=== PATIENT | male | born 1950 | race American Indian/Alaskan Native ===

== ENCOUNTER → 2021-01-24 09:39 | Outpatient (CLI) | payer MEDICARE, OTHER, SELFPAY ==
--- NOTE | 2021-01-24 | DI.CT.S_ITS ---
PROCEDURE: CT ABDOMEN PELVIS WO/W CON INDICATIONS: Hematuria, unspecified TECHNIQUE: Optional 5 mm thick noncontrast images acquired from the diaphragm to the symphysis pubis. After the administration of intravenous contrast, 5 mm thick images acquired from the diaphragm to the symphysis pubis after a 10-minute delay. 2 mm thick coronal and sagittal reformats were then performed of the kidneys and ureters. For radiation dose reduction, the following was used: automated exposure control, adjustment of mA and/or kV according to patient size. COMPARISON: [facility], CT, CT ABD PELVIS W CON, 10/01/2015, 19:26. FINDINGS: Image quality: Excellent. Lung bases: Lung bases are clear. Heart size is normal. Coronary artery stents are noted. Solid organs: Liver: The liver has no mass or intrahepatic biliary ductal dilatation. The portal vein and hepatic veins are patent. Multiple subcentimeter hepatic hypodensities too small to further characterize but are stable compared to prior CT in 2016 and therefore are likely cysts. Biliary: The gallbladder is not visualized. Pancreas: The pancreas has no mass or ductal dilatation. There is no surrounding inflammation. Spleen: Normal size. There are no masses. A subcentimeter hypodensity is unchanged, likely a cyst. Adrenals: No hypertrophy or nodules. Kidneys/ureters/bladder: No obstructive calculus or hydronephrosis. No solid mass. No cystic mass. The right ureter has a filling defect in the distal 3rd. There is a filling defect in the bladder with irregular finger-like border extending from the lateral wall of the bladder. There is irregular bladder thickening anteriorly. Peritoneum and bowel: The distal esophagus and stomach are normal. The small bowel has a normal caliber and appearance. The terminal ileum is normal. The large bowel has increased stool and diverticulosis. There is no evidence of diverticulitis. The appendix is normal. No free fluid or air. Nodes and vessels: No retroperitoneal or mesenteric adenopathy by size criteria. The aorta has atherosclerosis with no aneurysmal dilatation. Miscellaneous: No abdominal wall mass or hernia. PELVIS: Genitourinary: See above bladder findings. The prostate has a normal size. Miscellaneous: No inguinal hernias or adenopathy. Bones: Degenerative changes with no focal abnormality. The patient is status post L5-S1 discectomy and interbody fusion. No vertebral body compression fractures. IMPRESSION: 1. 3.4 x 3.7 centimeter irregular bladder mass extending from the left lateral wall. 2. No evidence of metastatic disease or adenopathy. 3. Hepatic hypodensities are unchanged compared to 2016 consistent with cysts. Dictated by: James Atkins M.D. on 01/24/2021 at 13:32 Approved by: James Atkins M.D. on 01/24/2021 at 13:44
== END ==
PROVIDERS: Family Provider Family Medicine; PCP Family Medicine; Referring Provider Family Medicine; Visit Provider Family Medicine
DX: R31.9 Hematuria, unspecified (principal); N32.9 Bladder disorder, unspecified
CPT/HCPCS: 74178

== ENCOUNTER → 2021-02-11 07:42 | Outpatient (CLI) | payer MEDICARE, OTHER, SELFPAY ==
[2021-02-11 11:31] LABS: COVID19 -Nasal RAPID Negative (Negative)
== END ==
PROVIDERS: Family Provider Family Medicine; PCP Family Medicine; Visit Provider Urology
DX: Z20.822 Contact with and (suspected) exposure to COVID-19 (principal)
CPT/HCPCS: 87635; C9803

== ENCOUNTER 2021-02-13 06:32 | Day surgery (SDC) | payer MEDICARE, OTHER, SELFPAY ==
[2021-02-05 12:22] VITALS: BMI 31.9
[2021-02-13] VITALS (11 sets, daily range): BP systolic 95–120; BP diastolic 50–69; PULSE 57–69; RESP 12–18; TEMP 36.4–37.1; O2SAT 97–100; BMI 31.9
--- NOTE | 2021-02-13 | PATH_ITS ---
[facility] Accession Number: [id number] . 01 Material submitted: . bladder - BLADDER TUMOR . 01 Clinical history: . SDC . 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 Histologic Grade: Low-grade Tumor extent: Noninvasive papillary carcinoma. Lymphovascular invasion: Not identified. Tumor configuration: Papillary and endophytic growth patterns. Muscularis propria (Detrusor muscle): Not identified. MRV 02/18/2021 1455 Local . 02 Comment: As part of routine quality assurance lab technician, Dr. Lane also reviewed this case and agrees with the interpretation. . 02 Electronically signed: . Sindy Guajardo MD, Pathologist NPI- [id number] . 01 Gross description: . The specimen is received in formalin, labeled bladder tumor and consists of multiple olmstead-pink fragments of soft tissue measuring 6.0 x 5.0 x 2.0 cm in aggregate. The specimen is filtered and entirely submitted in cassettes A1-A5. (EA:[id number]) /MRV 02/14/2021 1353 Local . 02 Pathologist provided ICD-10: C67.9 . 02 CPT . 114662 Performed at: 01 [facility] [address], [place], [place] [id number] MD Milan Koehler MD Phone: [phone] Performed at: 02 [facility] [address] [place], [place] [id number] MD Sindy Guajardo MD Phone: [phone]
[2021-02-13] MEDS: LACTATED RINGERS 1,000 ML 42 ML IV (07:36)
--- NOTE | 2021-02-13 07:37 | PM.PREOP ---
Pre-operative Note COVID-19 COVID-19 status: Negative Result date/Date tested (Pos, Neg/Pending): 02/11/21 Interval Note History & Physical reviewed/Exam performed by Physician: Yes Changes to H&P: No
[2021-02-13] MEDS: CEFAZOLIN 1 GM VIAL 2 GM IV (07:49)
--- NOTE | 2021-02-13 08:03 | SUR.OPER ---
Lithotomy on padded OR bed, head on pillow, arms secured on padded arm boards at <90 degrees abduction. Legs secured in padded yellow fins stirrups.
[2021-02-13] MEDS: WATER FOR INJECTION,STERILE 20 ML, mitoMYcin 20 MG INTRAVESIC (08:33)
--- NOTE | 2021-02-13 09:08 | P.OP_ITS ---
Operative Date/Time/Diagnoses Date of procedure: 02/13/21 Time of procedure: 07:45 Pre-op diagnosis: Left lateral wall bladder tumor 4 cm Post-op diagnosis: same Procedure & Clinicians Procedure: Transurethral resection of bladder tumor Same procedure as scheduled: Yes Indications: This is a very pleasant 71-year-old male who was found to have a bladder mass on recent CT. He presents at this time for transurethral resection of bladder tumor. Surgeon: Jaciel Etienne Click Yes if Unassisted: Yes Anesthesia Type: General Operative Notes Findings: Urethra normal along its length. Prosthetic fossa is approximately 3.5 cm in length with moderate obstructive character and normal mucosa. Ureteral orifices in normal position with clear efflux. On the left lateral wall of the bladder is a 3-1/2 to 4 cm papillary lesion consistent with urothelial carcinoma. It came down to a stalk. There was neovascularity in the bladder wall at the base of the tumor. No other lesions were noted in the bladd er. Closure Type: not applicable Specimen(s): other (Resected tumor fragments were sent to pathology.) Prosthetic devices, grafts, tissues, transplants, or devices: Eighteen Zimbabwean 5 cc Ayala catheter with 10 cc of sterile water in the balloon. Applied: catheter Estimated Blood Loss (mL): 50 Blood products transfused: none Procedure in detail: Procedure in detail: After informed consent was obtained, the patient was identified and brought to the operating room. He was placed in a supine position on the table and anesthesia was induced and maintained. The patient was then placed in lithotomy position prepped and draped in a sterile fashion for transurethral resection of bladder tumor. After prepping and draping and ensuring an adequate level of anesthesia. A 23 Zimbabwean cystoscope was passed through the urethra prostate and into the bladder. Cystoscopy was performed with 30 and 70 degree lens. The bladder was left full the cystoscope removed and continuous-flow resectoscope inserted via direct vision obturator. The resecting element was then inserted and the tumor was sequentially resected down to its base. Points of bleeding were controlled with electrocautery. The fragments were then evacuated. No fragments were left within the bladder. Attention was then turned to ensuring hemostasis was complete. The bladder was drained filled drained filled and hemostasis was ensured as points of bleeding were controlled with electrocautery. The patient's bladder was then left full and the resectoscope removed. An 18 Zimbabwean 5 cc Ayala catheter was inserted and the balloon filled with 10 cc of sterile water. The bladder was drained. Mitomycin was then instilled via the catheter with a sealed plug system. Patient was then awakened having tolerated the procedure well. There were no complications. 50 cc of blood loss. Patient was transferred to the postanesthesia care unit and will be discharged home. He will go home with his Ayala catheter. The mitomycin will be drained after an hour and a half to 2 hours. At that point the catheters to be placed to gravity drainage. Complications: none Post-operative Condition: stable Disposition: PACU Plan for aftercare: Patient is to have the mitomycin remain in his bladder for an hour and a half to 2 hours. The bladder will then be drained and the catheter placed to gravity drainage. Patient will be discharged to home with a Ayala. He will follow up my office in approximately 10 days. At that time we will perform a voiding trial and remove his catheter. He will be discharged with Ditropan 5 mg 1 p.o. q.8 hours as needed bladder spasm. He will be given Pyridium 200 mg p.o. q.8 hours as needed bladder irritation.
[2021-02-13] MEDS: fentaNYL 100 MCG/2 ML INJ IV (09:25)
[2021-02-13] MEDS: HYOSCYAMINE 0.125 MG TABLET PO (10:02)
--- NOTE | 2021-02-13 12:01 | SUR.PHASEII ---
PATIENT DISCHARGED AFTER DRAINING MITOMYCIN FROM BLADDER BY GRAVITY FROM [place]. APPROX 150CC'S RETURN. TEACHING PROVIDED ON CHANGING TO LEGBAG FOR DAYTIME AND DRAINAGE BAG FOR NIGHT TIME. PATIENT ABLE TO PERFORM BY RETURN DEMONSTRATION, INCLUDING CLEANSING ALL PORTS WITH ALCOHOL WIPES PRIOR TO CONNECTING TUBES. PROVIDED PATIENT WITH ALCOHOL WIPES FOR HOME. PATIENT LEFT BY WC WITH ALL BELONGINGS AN NEW DRAINAGE BAG AND DC HOME INSTRUCTIONS.
== END 2021-02-13 11:50 | disposition home or self-care (01) ==
PROVIDERS: Family Provider Family Medicine; PCP Family Medicine; Referring Provider Urology; Visit Provider Urology
PROC: 0TBB8ZZ Excision of Bladder, Via Natural or Artificial Opening Endoscopic (ICD-10-PCS; CPT 52235; principal; 2021-02-13 07:45)
DX: C67.9 Malignant neoplasm of bladder, unspecified (principal); G47.33 Obstructive sleep apnea (adult) (pediatric); F10.20 Alcohol dependence, uncomplicated; F41.9 Anxiety disorder, unspecified; N40.1 Benign prostatic hyperplasia with lower urinary tract symptoms; N13.8 Other obstructive and reflux uropathy; F17.210 Nicotine dependence, cigarettes, uncomplicated
CPT/HCPCS: 52235; 82962; J0690; J1100; J2405; J2704; J3010; J9280

== ENCOUNTER → 2021-02-26 09:50 | Outpatient (CLI) | payer MEDICARE, OTHER, SELFPAY | PROVIDERS: Family Provider Family Medicine; PCP Family Medicine; Visit Provider Urology | DX: C67.9 Malignant neoplasm of bladder, unspecified (principal); N32.89 Other specified disorders of bladder; N40.0 Benign prostatic hyperplasia without lower urinary tract symptoms; R30.0 Dysuria; Z68.31 Body mass index [BMI] 31.0-31.9, adult | CPT/HCPCS: 87077; 87086; 87186; 99213 ==

== ENCOUNTER → 2021-03-14 09:47 | Outpatient (ROUT) | payer MEDICARE, OTHER, SELFPAY ==
[2021-03-14 10:07] LABS: Appearance Urine UA Slightly Cloudy; Color Urine UA Yellow; Glucose Urine UA NEGATIVE (Negative); Ketones Urine UA NEGATIVE (NEGATIVE); Nitrite Urine UA NEGATIVE (Negative); Occult Blood Urine UA 3+ (Negative); Protein Urine UA Negative (Negative); Specific Gravity Urine UA 1.025 (1.000-1.035)
[2021-03-14 10:08] LABS: Amorphous Sediment Urine 2+; Bacteria Urine Moderate (10-30); Bilirubin Urine UA Negative (NEGATIVE); Culture Indicated Urine Specimen Cultured; Leukocyte Esterase Urine UA 1+ (NEGATIVE); Mucus Urine 1+ (Negative); RBC Urine 10-30/HPF (0-5/HPF); Urobilinogen Urine UA 0.2 E.U./dL (0.2); WBC Urine 10-30/HPF (0-5/HPF)
== END ==
PROVIDERS: Family Provider Family Medicine; PCP Family Medicine; Visit Provider Urology
DX: N39.0 Urinary tract infection, site not specified (principal)
CPT/HCPCS: 81001; 87086

== ENCOUNTER → 2021-04-15 09:08 | Outpatient (CLI) | payer MEDICARE, OTHER, SELFPAY ==
[2021-04-15 10:38] LABS: COVID19 -Nasal RAPID Negative (Negative)
== END ==
PROVIDERS: Family Provider Family Medicine; PCP Family Medicine; Visit Provider Urology
DX: Z20.822 Contact with and (suspected) exposure to COVID-19 (principal)
CPT/HCPCS: 87635; C9803

== ENCOUNTER → 2021-04-17 07:53 | Day surgery (SDC) | payer MEDICARE, OTHER, SELFPAY ==
[2021-04-14 08:46] VITALS: BMI 32.2
[2021-04-17] VITALS (7 sets, daily range): BP systolic 80–151; BP diastolic 40–73; PULSE 54–70; RESP 12–16; TEMP 36.6–36.7; O2SAT 92–97; BMI 32.2
[2021-04-17] MEDS: LACTATED RINGERS 1,000 ML 42 ML IV (08:41)
--- NOTE | 2021-04-17 08:44 | PM.PREOP ---
Pre-operative Note COVID-19 COVID-19 status: Negative Result date/Date tested (Pos, Neg/Pending): 04/15/21 Interval Note History & Physical reviewed/Exam performed by Physician: Yes Changes to H&P: No
--- NOTE | 2021-04-17 08:44 | SUR.OPER ---
Lithotomy on padded OR bed, head on pillow, arms secured on padded arm boards at <90 degrees abduction. Legs secured in padded yellow fins stirrups.
[2021-04-17] MEDS: CEFAZOLIN 1 GM VIAL 2 GM IV (09:00)
[2021-04-17] MEDS: BELLADONNA/OPIUM SUPPOSITORIES 1 EACH PR (09:01)
--- NOTE | 2021-04-17 09:29 | PM.OP.1 ---
Procedure & Clinicians Procedure: Cystoscopy with fulguration, possible biopsy, possible transurethral resection of bladder tumor Same procedure as scheduled: Yes Indications: For a pleasant 71-year-old male who presents for a ?2nd look procedure ?. Patient had a transurethral resection of bladder tumor approximately 6 weeks ago which revealed a large low-grade appearing to be noninvasive urothelial carcinoma. He presents today to ensure adequate resection repeat biopsy and/or resection if needed. Surgeon: Jaciel Etienne Click Yes if Unassisted: Yes Anesthesia Type: General Operative Notes Findings: Findings: Urethra normal to the prostatic fossa which shows moderate obstructive character. Within the bladder the ureteral orifices were normal position with clear efflux. The area of previous resection on the left was well healing with no remaining eschar. There was medial to this a small persistence of what appeared to be papillary tumor in 1-3 mm in diameter this was fulgurated and after that no remaining residual tumor was noted. No other abnormality was noted in the bladder. Closure Type: not applicable Specimen(s): none sent Estimated Blood Loss (mL): 0 Blood products transfused: none Procedure in detail: Procedure in detail: After informed consent was obtained and the patient was identified he was brought to the operating room. In the operating room he was placed in the supine position on the table and anesthesia was induced and maintained. After ensuring an adequate level of anesthesia the patient was then placed in lithotomy position prepped with a sterilizing prepped and draped in a sterile fashion. After prepping, draping and assuring an adequate level of anesthesia a 21 Bermudian cystoscope was passed through the urethra prostate and into the bladder where cystoscopy was performed with the 30 and 70 degree lens. With the small area of persistence identified the 30 degree lens was once again inserted and using a Bugbee electrode the area was fulgurated completely. Again cystoscopy was performed with the 30 and 70 degree lens no other areas of abnormality were noted. At this point the bladder was drained the scope was removed and patient was transferred to the postanesthesia care unit having tolerated the procedure well. There were no complications. The patient will be discharged home to follow-up in my office in 10-14 days. Complications: none Post-operative Condition: stable Disposition: PACU Plan for aftercare: Discharged home follow up in 10-14 days.
== END | disposition home or self-care (01) ==
PROVIDERS: Family Provider Family Medicine; PCP Family Medicine; Referring Provider Urology; Visit Provider Urology
PROC: 0TBB8ZZ Excision of Bladder, Via Natural or Artificial Opening Endoscopic (ICD-10-PCS; CPT 52224; principal; 2021-04-17 09:15)
DX: D41.4 Neoplasm of uncertain behavior of bladder (principal); Z85.51 Personal history of malignant neoplasm of bladder; N40.1 Benign prostatic hyperplasia with lower urinary tract symptoms; N13.8 Other obstructive and reflux uropathy; F41.9 Anxiety disorder, unspecified; F10.20 Alcohol dependence, uncomplicated; G47.33 Obstructive sleep apnea (adult) (pediatric)
CPT/HCPCS: 52224; J0690; J2704; J3010

== ENCOUNTER 2022-12-15 08:43 | Day surgery (SDC) | payer MEDICARE, MEDICAID, OTHER, SELFPAY ==
[2022-12-09 12:31] VITALS: BMI 31.9
[2022-12-15] VITALS (8 sets, daily range): BP systolic 155–171; BP diastolic 67–86; PULSE 50–72; RESP 14–18; TEMP 36.3–36.7; O2SAT 95–99; BMI 25.8
--- NOTE | 2022-12-15 | PATH_ITS ---
[facility] Accession Number: [id number] No. of containers..02 Tissue . 01 Material submitted: . PART A: bladder - RIGHT LATERAL WALL BLADDER TUMOR PART B: bladder neck - LEFT BLADDER NECK . 01 Diagnosis: A. Right Lateral Wall, Bladder Tumor, Resection: Low-grade papillary urothelial carcinoma, noninvasive. Muscularis propria is not present for evaluation. . B. Left Bladder Neck, Biopsy: Low-grade papillary urothelial carcinoma, noninvasive. Muscularis propria is present and is uninvolved. See comment. . COMMENT: A very small focus within the low-grade papillary urothelial carcinoma in part B demonstrates slight increase in pleomorphism and scattered karyorrhectic debris; however, it is without overt moderate to severe cytologic atypia or increased mitotic activity. This does not reach our threshold for focal high-grade cytology. MRV 12/22/2022 1731 Local . 01 Electronically signed: . Michelle Cardoza MD, Pathologist NPI- [id number] . 01 Gross description: . Part A: RIGHT LATERAL WALL BLADDER TUMOR: Received in formalin are 3 fragment(s) of olmstead, soft tissue measuring 0.1 x 0.1 x 0.1 cm to 0.4 x 0.4 x 0.3 cm submitted entirely in 1 cassette(s) Part B: LEFT BLADDER NECK: Received in formalin are multiple fragment(s) of olmstead, soft tissue measuring 0.1 x 0.1 x 0.1 cm to 0.3 x 0.3 x 0.3 cm submitted entirely in 2 cassette(s) /ZOHRA 12/16/2022 2312 Local . 01 Pathologist provided ICD-10: D49.4 . 01 CPT . 555346, 585851 Specimen Comment: A courtesy copy of this report has been sent to [phone] Performed at: 01 [facility] [address] [facility], [place], [place] [id number] MD Milan Koehler MD Phone: [phone]
--- NOTE | 2022-12-15 09:17 | PM.PREOP ---
Pre-operative Note COVID-19 COVID-19 status: Not tested Criteria for continued procedure: Delay expected to result in less-positive ultimate med/surg outcome and Non-surgical alternatives not available or appropriate per current SOC Interval Note History & Physical reviewed/Exam performed by Physician: Yes Changes to H&P: No
[2022-12-15] MEDS: LACTATED RINGERS 1,000 ML 21 ML IV (09:34)
[2022-12-15] MEDS: ALBUTEROL 2.5 MG/3 ML NEB (ADULT) INH (09:35)
[2022-12-15] MEDS: CEFAZOLIN 2 GM/100 ML PREMIX 100 ML IV (10:00)
--- NOTE | 2022-12-15 10:04 | SUR.OPER ---
Lithotomy on padded OR bed, head on pillow, arms secured on padded arm boards at <90 degrees abduction. Legs secured in padded yellow fins stirrups.
[2022-12-15] MEDS: ACETAMINOPHEN IV 1,000 MG/100 ML VIAL 400 MG IV (10:24)
[2022-12-15] MEDS: WATER FOR INJECTION,STERILE 20 ML, mitoMYcin 20 MG INTRAVESIC (11:02)
--- NOTE | 2022-12-15 11:08 | PM.OP.1 ---
Procedure & Clinicians Procedure: Trans urethral resection of bladder tumor (2 in number) 1. 1 cm in diameter 2. 3 cm in diameter. Instillation of mitomycin Same procedure as scheduled: Yes Indications: This 72-year-old male with a history of bladder cancer presented with hematuria was found to have these 2 lesions 1 on the right lateral wall and the other the larger at the 3 o'clock position on the bladder neck extending into the bladder. Patient presents this time for resection and instillation of mitomycin. Surgeon: Jaciel Etienne Click Yes if Unassisted: Yes Anesthesia Type: General Operative Notes Findings: Findings: Urethral meatus was normal. The urethra exhibited some blanching and a large caliber stricture in the proximal bulbar urethra. This was easily dilated with the scope.. Sphincter as well coapted. Prostate is nonobstructing. At the 3 o'clock position on the bladder neck on the bladder side was the papillary tumor. This was approximately 3 cm in diameter on the right lateral wall there was another papillary 1 cm tumor. There were no other tumors within the bladder there were multiple scars from previous resections ureteral orifices were in normal position with clear efflux and well away from either these tumors. At the end of the procedure the tumors appeared completely resected. Hemostasis was good a 22 Maltese 5 cc Ayala catheter was left in place with 14 cc in the balloon. Mitomycin was instilled and went with the patient in his bladder to the postanesthesia care unit. Closure Type: not applicable Specimen(s): other (Right lateral wall bladder tumor and left bladder neck tumor.) Applied: catheter (Twenty-two Maltese [address] Ayala catheter 14 cc in the balloon.) Estimated Blood Loss (mL): 20 Blood products transfused: none Procedure in detail: Procedure in detail: After informed consent was obtained, the patient was identified and brought to the operating room where he is placed in a supine position on the operative table. He had anesthesia induced and maintained. Ensuring an adequate level of anesthesia the patient was transitioned to the lithotomy position where he was prepped, draped, prepared for Transurethral procedure. After prepping draping, time-out and ensuring an adequate level of anesthesia a 22 Maltese cystoscope was passed through the urethra in the bladder where cystoscopy was performed with the 30 and 7 degree lens. The biopsy forceps was then inserted and the smaller tumor resected. Bugbee electrode was inserted in the base and margin were fulgurated and hemostasis achieved with cautery. The resectoscope was then inserted. After dilation of the meatus with Yojana sounds so that it would accept the resectoscope. This was then passed through the urethra and prostate into the bladder where the tumor was sequentially resected. Points of bleeding controlled with the electrocautery. With the appearance of complete resection the resectoscope was removed cystoscope reinserted and using the 70 degree lens the area of resection was surveyed and it appeared that things were completely resected. Attention was then turned to evacuating these fragments which were evacuated and collected separately. Of note the small tumor fragments had been removed with the biopsy forceps. With all the fragments collected bladder with string it filled drain filled hemostasis appeared good. The scope was removed in the 22 Maltese catheter passed through the urethra prostate and in the bladder without difficulty. The balloon was filled with 14 cc of sterile water and placed to gravity drainage. The bladder was drained. The chemotherapy plug was placed in the Ayala and using appropriate technique the mitomycin was instilled. The plug was left in place the patient was awakened to be taken to the postanesthesia care unit having tolerated the procedure well the patient will go home with his Ayala catheter he will have a dwell time of approximately an hour and a half for the mitomycin and be discharged to home to follow-up my office. Complications: none Post-operative Condition: stable Disposition: PACU Plan for aftercare: After mitomycin the patient will be discharged to home with a Ayala catheter to follow up at my office.
[2022-12-15] MEDS: PHENAZOPYRIDINE 100 MG TABLET 200 MG PO (11:27)
--- NOTE | 2022-12-15 11:35 | SUR.PHASEII ---
On back from [id number], turned to right side at 1130.
== END 2022-12-15 13:06 | disposition home or self-care (01) ==
PROVIDERS: Family Provider Family Medicine; PCP Family Medicine; Referring Provider Urology; Visit Provider Urology
PROC: 0TBB8ZZ Excision of Bladder, Via Natural or Artificial Opening Endoscopic (ICD-10-PCS; CPT 52235; principal; 2022-12-15 09:15)
DX: D49.4 Neoplasm of unspecified behavior of bladder (principal); R31.29 Other microscopic hematuria; N40.0 Benign prostatic hyperplasia without lower urinary tract symptoms
CPT/HCPCS: 52235; 82962; J0131; J0690; J1100; J2405; J2704; J3010; J7613; J9280

== ENCOUNTER → 2022-12-30 08:58 | Outpatient (CLI) | payer MEDICARE, MEDICAID, OTHER, SELFPAY | PROVIDERS: Family Provider Family Medicine; PCP Family Medicine; Visit Provider Urology | DX: N39.0 Urinary tract infection, site not specified (principal); N32.89 Other specified disorders of bladder | CPT/HCPCS: 51798; 87086; 87186 ==

== ENCOUNTER → 2025-05-24 14:35 | Outpatient (CLI) | payer MEDICARE, OTHER, SELFPAY ==
--- NOTE | 2025-05-24 14:38 | DI.CT.S_ITS ---
PROCEDURE: CT IVP A/P W/WO
[2025-05-24 17:29] LABS: Estimated Glomerular Filt Rate > 60 mL/min (>60)
== END ==
PROVIDERS: PCP Family Medicine; Referring Provider Urology; Visit Provider Urology
DX: C67.9 Malignant neoplasm of bladder, unspecified (principal); N32.89 Other specified disorders of bladder; K83.8 Other specified diseases of biliary tract; J92.9 Pleural plaque without asbestos; Z90.49 Acquired absence of other specified parts of digestive tract
CPT/HCPCS: 74178; 82565; Q9967